=== PATIENT | male | born 1975 | race American Indian/Alaskan Native ===

== ENCOUNTER 2017-09-29 09:57 | Emergency (ER) | payer MEDICAID ==
[2017-09-29 10:17] VITALS: BP 155/72; PULSE 106; RESP 16
[2017-09-29 10:24] VITALS: TEMP 97.4; O2SAT 97
--- NOTE | 2017-09-29 11:32 | C.PDOC ---
History Of Present Illness 42 year old male, whose PMHx includes HIV, Asthma, Spinal Stenosis, presents to the ED for evaluation of chest pain and questionable syncopal episode onset prior to arrival. Patient admits to liquid marijuana use earlier today. Currently in ED, patient states his symptoms have improved. He denies shortness of breath, cough, extremity numbness/weakness. Time Seen by Provider: 09/29/17 10:50 Chief Complaint (Nursing): Chest Pain History Per: Patient History/Exam Limitations: no limitations Onset/Duration Of Symptoms: Hrs Current Symptoms Are (Timing): Better Quality: "Pain" Associated Symptoms: denies: Nausea Additional History Per: Patient Past Medical History Reviewed: Historical Data, Nursing Documentation, Vital Signs Vital Signs: Last Vital Signs Temp 97.4 F L 09/29/17 10:22 Pulse 106 H 09/29/17 10:10 Resp 16 09/29/17 10:10 BP 155/72 H 09/29/17 10:10 Pulse Ox 97 09/29/17 11:52 - Medical History PMH: Arthritis, Asthma, HIV Surgical History: No Surg Hx Family History: States: Unknown Family Hx - Social History Hx Alcohol Use: No Hx Substance Use: No (pt denies) - Immunization History Hx Tetanus Toxoid Vaccination: No Hx Influenza Vaccination: No Hx Pneumococcal Vaccination: No Review Of Systems Cardiovascular: Positive for: Chest Pain Physical Exam - Physical Exam Appears: Non-toxic, No Acute Distress Skin: Normal Color, Warm, Dry Head: Atraumatic, Normacephalic Eye(s): bilateral: Normal Inspection Oral Mucosa: Moist Neck: Supple Chest: Symmetrical, No Deformity, No Tenderness Cardiovascular: Rhythm Regular, No Murmur Respiratory: Normal Breath Sounds, No Rales, No Rhonchi, No Wheezing Gastrointestinal/Abdominal: Normal Exam, Bowel Sounds, Soft Extremity: Normal ROM, Capillary Refill (less than 2 seconds ) Neurological/Psych: Oriented x3, Normal Speech, Normal Cognition ED Course And Treatment ECG: Interpreted By Me, Viewed By Me ECG Rhythm: Sinus Rhythm Interpretation Of ECG: Normal Sinus Rhythm at 97bpm. Normal intervals. Normal axis. LVH. T wave inversions in lead III, aVF, and V6. Rate From EC O2 Sat by Pulse Oximetry: 97 (on RA) Pulse Ox Interpretation: Normal Medical Decision Making Medical Decision Making: Assessment: chest pain Progress: This patient is choosing to leave against medical advice. I have personally explained to the patient that choosing to do so may result in permanent bodily harm or . I have discussed at great length that without further evaluation and monitoring there may be unforeseen circumstances and/or deterioration causing permanent bodily harm or as a result of their choice. The patient is alert, oriented, and shows the mental capacity to make clear decisions regarding the patients health care at this time. The patient continues to wish to leave against medical advice. In light of the patients decision to leave AMA, follow-up has been arranged and the patient is aware of the importance of following up as instructed. The patient has been advised that he should return to the ED immediately if he changes his mind at any time, or if his condition begins to change or worsen in any way. Disposition - Disposition Disposition: AGAINST MEDICAL ADVICE Disposition Time: 11:32 Condition: STABLE Forms: [facility] (Nigerien) - Clinical Impression Clinical Impression: Chest pain - Scribe Statement The provider has reviewed the documentation as recorded by the Scribe (Sherie Husain) Provider Attestation: All medical record entries made by the Scribe were at my direction and personally dictated by me. I have reviewed the chart and agree that the record accurately reflects my personal performance of the history, physical exam, medical decision making, and the department course for this patient. I have also personally directed, reviewed, and agree with the discharge instructions and disposition.
--- NOTE | 2017-09-29 11:32 | C.PDOC ---
Time Seen by Provider: 09/29/17 10:50 Chief Complaint (Nursing): Chest Pain Past Medical History Vital Signs: Last Vital Signs Temp 97.4 F L 09/29/17 10:22 Pulse 106 H 09/29/17 10:10 Resp 16 09/29/17 10:10 BP 155/72 H 09/29/17 10:10 Pulse Ox 97 09/29/17 10:22 - Medical History PMH: Arthritis, Asthma, HIV - Social History Hx Alcohol Use: No Hx Substance Use: No (pt denies) - Immunization History Hx Tetanus Toxoid Vaccination: No Hx Influenza Vaccination: No Hx Pneumococcal Vaccination: No ED Course And Treatment O2 Sat by Pulse Oximetry: 97 Disposition - Disposition Disposition: AGAINST MEDICAL ADVICE Disposition Time: 11:32 Condition: STABLE - Clinical Impression Clinical Impression: Chest pain
--- NOTE | 2017-09-30 22:02 | CARD ---
APPROVED REPORT EKG Measurement Heart [id number] [id number] <Conclusion> Normal sinus rhythm Voltage criteria for left ventricular hypertrophy T wave abnormality, consider inferior ischemia Prolonged QT Abnormal ECG
== END 2017-09-29 11:35 | disposition left against medical advice (07) ==
LOC: C.ER 09:57
DX: R07.9 Chest pain, unspecified (principal)

== ENCOUNTER 2017-10-28 23:51 | Emergency (ER) | payer MEDICAID ==
[2017-10-29 00:05] VITALS: RESP 18
[2017-10-29 00:52] LABS: BASO % 0.2 % (0.0-2.0); EOS % 0.1 % (0.0-4.0); HEMOGLOBIN 12.6 g/dL (12.0-18.0); LYMPH # 0.4 K/uL (1.0-4.3); LYMPH % 4.4 % (20.0-40.0); MEAN CELL VOLUME 93.7 fL (80.0-94.0); MEAN CORPUSCULAR HEMOGLOBIN 32.6 pg (27.0-31.0); MEAN CORPUSCULAR HGB CONC 34.8 g/dL (33.0-37.0); MEAN PLATELET VOLUME 8.5 fL (7.2-11.7); MONO # 0.6 K/uL (0.0-0.8); MONO % 6.5 % (0.0-10.0); NEUT # 7.8 K/uL (1.8-7.0); NEUT % 88.8 % (50.0-75.0); PLATELET COUNT 175 K/uL (130-400); RBC 3.87 Mil/uL (4.40-5.90); RED CELL DISTRIBUTION WIDTH 15.5 % (11.5-14.5); WHITE BLOOD COUNT 8.8 K/uL (4.8-10.8)
[2017-10-29 00:53] LABS: URINE BILIRUBIN NEGATIVE (NEGATIVE); URINE CLARITY Clear (Clear); URINE COLOR Colorless (YELLOW); URINE GLUCOSE (UA) NORMAL (Normal); URINE LEUKOCYTE ESTERASE NEG Leu/uL (Negative); URINE PROTEIN NEGATIVE (NEGATIVE); URINE UROBILINOGEN NORMAL mg/dL (0.2-1.0)
[2017-10-29 00:57] LABS: URINE BLOOD NEGATIVE (NEGATIVE)
[2017-10-29 01:07] LABS: ALBUMIN 4.4 g/dL (3.5-5.0); ALT/SGPT 12 U/L (21-72); AST/SGOT 34 U/L (17-59); BARBITURATES, UR NEGATIVE (NEGATIVE); BENZODIAZEPINES, UR NEGATIVE (NEGATIVE); BLOOD UREA NITROGEN 10 mg/dL (9-20); GFR AFRICAN-AMERICAN > 60; GFR NON-AFRICAN AMERICAN > 60; OPIATES, UR NEGATIVE (NEGATIVE); PHENCYCLIDINE, UR NEGATIVE (NEGATIVE)
[2017-10-29 01:16] LABS: CK-MB 1.19 ng/mL (0.0-3.38)
[2017-10-29] MEDS ORDERED: Potassium Chloride 20 mEq ER Tab PO STA (01:29)
[2017-10-29] MEDS ORDERED: Potassium Chloride 20 mEq ER Tab PO ONE (01:43)
--- NOTE | 2017-10-29 01:52 | C.PDOC ---
Time Seen by Provider: 10/29/17 00:06 Chief Complaint (Nursing): Chest Pain History Per: Patient, Family () Onset/Duration Of Symptoms: Hrs (tonight) Current Symptoms Are (Timing): Still Present Severity: Moderate Quality: "Pain" Modifying Factors: Other Indicated Below Exacerbating Factors: Other (after smoking something laced with crack cocaine) Additional History Per: Prior Records Past Medical History Reviewed: Historical Data, Nursing Documentation, Vital Signs Vital Signs: Last Vital Signs Temp Pulse 109 H 10/29/17 00:02 Resp 18 10/29/17 00:02 BP 145/78 10/29/17 00:02 Pulse Ox 98 10/29/17 00:02 - Medical History PMH: Arthritis, Asthma, HIV, HTN, Hypercholesterolemia Family History: States: Unknown Family Hx - Social History Hx Tobacco Use: Yes Hx Alcohol Use: Yes Hx Substance Use: Yes - Immunization History Hx Tetanus Toxoid Vaccination: No Hx Influenza Vaccination: No Hx Pneumococcal Vaccination: No Review Of Systems Except As Marked, All Systems Reviewed And Found Negative. Constitutional: Negative for: Fever Cardiovascular: Positive for: Chest Pain Respiratory: Negative for: Hemoptysis Gastrointestinal: Negative for: Abdominal Pain Musculoskeletal: Negative for: Neck Pain, Leg Pain Neurological: Negative for: Weakness, Numbness Physical Exam - Physical Exam Appears: No Acute Distress Skin: Normal Color, Warm, Dry Head: Atraumatic, Normacephalic Eye(s): bilateral: Normal Inspection, PERRL Neck: Normal ROM, Supple Cardiovascular: Rhythm Regular Respiratory: Normal Breath Sounds, No Accessory Muscle Use Gastrointestinal/Abdominal: Soft, No Tenderness Back: No CVA Tenderness Extremity: Normal ROM, No Pedal Edema, No Calf Tenderness Neurological/Psych: Oriented x3, Normal Motor, Normal Sensation ED Course And Treatment - Laboratory Results Result Diagrams: 10/29/17 00:48 10/29/17 00:48 ECG: Interpreted By Me, Viewed By Me ECG Rhythm: Sinus Tachycardia, Nonspecific Changes ECG Interpretation: Abnormal Interpretation Of ECG: LVH with strain pattern Rate From EC O2 Sat by Pulse Oximetry: 98 Pulse Ox Interpretation: Normal - Radiology CXR: Interpreted by Me, Viewed By Me CXR Interpretation: Yes: No Acute Disease Progress Note: I want to keep pt for further evaluation and treatment, however pt is not willing to stay and wants to leave right now. He insists on leaving AMA even after I explained to him that he is in serious danger and may if he leaves right now. Against Medical Advice - AMA Patient Left Against Medical Advice: The patient declines admission to the hospital and wishes to leave the Emergency Department. This action is against my medical advice. This decision was made with informed refusal. The patient was told that admission to the hospital is necessary. Explanation of the reasons why were discussed. The risks of leaving were explained to the patient and include, but are not limited to, worsening of known or currently unknown conditions, permanent disability and from undiagnosed or untreated conditions. The patient has the capacity to make this informed decision and understands my explanation of the current medical problem and risks of leaving. The patient voluntarily accepts these risks and signed an AMA form documenting our conversation. The patient was given the opportunity to ask questions and reconsider. The patient was encouraged to return to the Emergency Department at any time for further care. Progress - Interventions Interventions:: Observation, Oxygen - Medications Administered Oral: Aspirin, Other (KCl) Intravenous: Other (Ativan) - Data Reviewed Data Reviewed: Lab, Diagnostic imaging, EKG, Old records - Patient Status Patient status: Partially improved - Continuity of Care Discussed patient case with:: Patient, Family-HIPPA compliant, ED Nurse Disposition Counseled Patient/Family Regarding: Studies Performed, Diagnosis, Need For Followup, Smoking Cessation - Disposition Referrals: [facility] [Outside] Disposition: AGAINST MEDICAL ADVICE Disposition Time: 01:55 Condition: GUARDED Additional Instructions: Follow up with your doctor or in the clinic as soon as possible. Return to the ER if you change your mind, develop worsening of symptoms or if you have any other concerns. Instructions: Chest Pain (DC), Leaving Against Medical Advice - Clinical Impression Clinical Impression: Left against medical advice, Chest pain, Cocaine abuse
[2017-10-29 02:06] VITALS: BP 154/81; PULSE 104; TEMP 98.7; O2SAT 96
[2017-10-29 02:20] LABS: BANDS 2 % (0-2); LYMPHOCYTE 6 % (20-40); MONOCYTE 8 % (0-10); NEUTROPHIL 84 % (50-75); PLATELET ESTIMATE NORMAL (NORMAL); TOTAL CELLS COUNTED 100
--- NOTE | 2017-10-29 11:57 | RAD ---
PROCEDURE: CHEST RADIOGRAPH, 1 VIEW HISTORY: Chest pain COMPARISON: None available. FINDINGS: LUNGS: Limited linear atelectasis or fibrosis in the inferior right lung zone with remaining lung lechuga clear bilaterally otherwise. PLEURA: No pneumothorax or pleural fluid seen. CARDIOVASCULAR: Normal. OSSEOUS STRUCTURES: No significant abnormalities. VISUALIZED UPPER ABDOMEN: Normal. OTHER FINDINGS: None. IMPRESSION: Linear atelectasis or fibrosis right lung base. No definite acute infiltrates bilaterally. No acute cardiac disease.
--- NOTE | 2017-11-01 14:16 | CARD ---
APPROVED REPORT EKG Measurement Heart [id number] <Conclusion> Sinus tachycardia Possible Left atrial enlargement Left ventricular hypertrophy with repolarization abnormality Abnormal ECG
== END 2017-10-29 02:11 | disposition left against medical advice (07) ==
LOC: C.ER 23:51
DX: R07.9 Chest pain, unspecified (principal); E87.6 Hypokalemia; F14.10 Cocaine abuse, uncomplicated
CPT/HCPCS: 71045; 80053; 80324; 80345; 80346; 80349; 80353; 80358; 80361; 81001; 83735; 83992; 84484; 85025; 93005; 96374; 99284; J2060

== ENCOUNTER 2017-11-30 03:33 | Emergency (ER) | payer MEDICAID ==
[2017-11-30 03:53] VITALS: RESP 12; O2SAT 98
--- NOTE | 2017-11-30 03:58 | C.PDOC ---
History Of Present Illness Patient with a Hx of HIV, HTN, and polysubstance abuse presents to the ER with a complaint of a dull, aching, nonradiating chest pain. He received aspirin and 3 sublingual nitro enroute. Denies fever, chills, nausea, or vomiting. Time Seen by Provider: 11/30/17 03:54 Chief Complaint (Nursing): Chest Pain History Per: Patient History/Exam Limitations: no limitations Onset/Duration Of Symptoms: Hrs Current Symptoms Are (Timing): Still Present Severity: Moderate Pain Scale Rating Of: 4 Quality: Dull, Aching Associated Symptoms: denies: Nausea, Dyspnea, Diaphoresis, Syncope Modifying Factors: None Exacerbating Factors: None Alleviating Factors: None Nitro Therapy Administered: 3, Per EMS Recent travel outside of the [place]: No Past Medical History Reviewed: Historical Data, Nursing Documentation, Vital Signs Vital Signs: Last Vital Signs Temp 98.9 F 11/30/17 03:43 Pulse 80 11/30/17 05:03 Resp 12 11/30/17 05:03 BP 115/57 L 11/30/17 05:03 Pulse Ox 98 11/30/17 05:04 - Medical History PMH: Arthritis, Asthma, HIV, HTN, Hypercholesterolemia Family History: States: No Known Family Hx - Social History Hx Tobacco Use: Yes Hx Alcohol Use: Yes Hx Substance Use: Yes - Immunization History Hx Tetanus Toxoid Vaccination: No Hx Influenza Vaccination: No Hx Pneumococcal Vaccination: No Review Of Systems Constitutional: Negative for: Fever, Chills Cardiovascular: Positive for: Chest Pain. Negative for: Palpitations Respiratory: Negative for: Cough, Shortness of Breath Gastrointestinal: Negative for: Nausea, Vomiting Physical Exam - Physical Exam Appears: Non-toxic Skin: Warm, Dry Head: Normacephalic Oral Mucosa: Moist Chest: No Tenderness, Other (Pierced nipples) Cardiovascular: Rhythm Regular Respiratory: No Rales, No Rhonchi, No Wheezing Gastrointestinal/Abdominal: Soft, No Tenderness Neurological/Psych: Oriented x3 ED Course And Treatment - Laboratory Results Result Diagrams: 11/30/17 04:03 11/30/17 04:03 ECG: Interpreted By Me, Viewed By Me ECG Rhythm: Sinus Rhythm (86), Nonspecific Changes O2 Sat by Pulse Oximetry: 98 (Room air) Pulse Ox Interpretation: Normal - Radiology CXR: Interpreted by Me, Viewed By Me CXR Interpretation: No: Infiltrates, Fracture, Pnemothorax Progress Note: EKG, blood work, CXR, and urinalysis ordered. Reevaluation Time: 05:41 Reassessment Condition: Improved Medical Decision Making Medical Decision Making: Upon provider reevaluation patient is feeling better, is medically stable, and requires no further treatment in the ED at this time. Patient will be discharged home . Counseling was provided and all questions were answered regarding diagnosis and need for follow up with dr patricia. There is agreement to discharge plan. Return if symptoms persist or worsen. Disposition Counseled Patient/Family Regarding: Studies Performed, Diagnosis, Need For Followup - Disposition Referrals: Micky Patricia MD [Medical Doctor] - Disposition: HOME/ ROUTINE Disposition Time: 03:58 Condition: FAIR Additional Instructions: Please refrain from cocaine use and do return if symptoms recur Instructions: Cocaine Use Disorder, Chest Pain (DC) Forms: [email or web address] (Ukrainian) - Clinical Impression Clinical Impression: Chest pain, Cocaine abuse - Scribe Statement The provider has reviewed the documentation as recorded by the Scribrussell Merida All medical record entries made by the Scribe were at my direction and personally dictated by me. I have reviewed the chart and agree that the record accurately reflects my personal performance of the history, physical exam, medical decision making, and the department course for this patient. I have also personally directed, reviewed, and agree with the discharge instructions and disposition.
[2017-11-30 04:10] LABS: BASO % 0.3 % (0.0-2.0); EOS % 0.4 % (0.0-4.0); HEMOGLOBIN 13.3 g/dL (12.0-18.0); LYMPH # 1.2 K/uL (1.0-4.3); LYMPH % 10.5 % (20.0-40.0); MEAN CELL VOLUME 94.2 fL (80.0-94.0); MEAN CORPUSCULAR HEMOGLOBIN 31.9 pg (27.0-31.0); MEAN CORPUSCULAR HGB CONC 33.9 g/dL (33.0-37.0); MONO # 0.6 K/uL (0.0-0.8); MONO % 5.2 % (0.0-10.0); NEUT # 9.2 K/uL (1.8-7.0); NEUT % 83.6 % (50.0-75.0); NRBC % 0.1 % (0.0-2.0); RBC 4.15 Mil/uL (4.40-5.90); RED CELL DISTRIBUTION WIDTH 14.5 % (11.5-14.5)
[2017-11-30 04:12] LABS: URINE BILIRUBIN NEGATIVE (NEGATIVE); URINE CLARITY Clear (Clear); URINE COLOR Straw (YELLOW); URINE GLUCOSE (UA) NORMAL (Normal); URINE LEUKOCYTE ESTERASE NEG Leu/uL (Negative); URINE PROTEIN NEGATIVE (NEGATIVE); URINE UROBILINOGEN NORMAL mg/dL (0.2-1.0)
[2017-11-30 04:14] LABS: INR 1.2; PROTHROMBIN TIME 12.8 SECONDS (9.7-12.2)
[2017-11-30 04:17] LABS: URINE BLOOD TRACE (NEGATIVE)
[2017-11-30 04:21] LABS: ALB/GLOB RATIO 1.3 (1.0-2.1); ALBUMIN 4.7 g/dL (3.5-5.0); ALT/SGPT 24 U/L (21-72); AST/SGOT 36 U/L (17-59); BLOOD UREA NITROGEN 13 mg/dL (9-20); CALCIUM 9.4 mg/dl (8.6-10.4); GFR AFRICAN-AMERICAN > 60; GFR NON-AFRICAN AMERICAN > 60
[2017-11-30 04:32] LABS: B-TYPE NATRIURETIC PEPTIDE 31.4 pg/mL (0-450)
[2017-11-30 04:36] LABS: BARBITURATES, UR NEGATIVE (NEGATIVE); BENZODIAZEPINES, UR NEGATIVE (NEGATIVE); OPIATES, UR NEGATIVE (NEGATIVE); PHENCYCLIDINE, UR NEGATIVE (NEGATIVE)
[2017-11-30 05:03] VITALS: BP 115/57; PULSE 80
[2017-11-30 05:53] VITALS: TEMP 98.2
--- NOTE | 2017-11-30 12:09 | RAD ---
Chest x-ray single frontal view History: Chest pain Comparison: 10/29/2017 Findings: Linear atelectatic changes at both lung bases. No focal infiltrate or effusion. Upper lobe granulomatous changes. Heart size within normal limits. Degenerative changes in the spine. Impression: Linear atelectatic changes at both lung bases. No focal infiltrate or effusion. Upper lobe granulomatous changes. Heart size within normal limits.
== END 2017-11-30 05:58 | disposition home or self-care (01) ==
LOC: C.ER 03:33
DX: R07.9 Chest pain, unspecified (principal); F14.10 Cocaine abuse, uncomplicated; I10 Essential (primary) hypertension; E78.00 Pure hypercholesterolemia, unspecified; F17.210 Nicotine dependence, cigarettes, uncomplicated

== ENCOUNTER 2018-09-18 11:52 | Emergency (ER) | payer MEDICAID ==
--- NOTE | 2018-09-18 12:29 | C.PDOC ---
History Of Present Illness REQUESTING "SOMETHING FOR CONSTIPATION", NO BM X 4 DAYS. SP DC FROM [facility] [place] FOR VOMITING, NARCOTIC WITHDRAWAL. PS S/P CT ABD "IT WAS NEGATIVE". REQUESTED "LIQUID TO DRINK SO I CAN GO" BUT NO RX GIVEN. +FLATUS. DENIES PSH ABD. NO NV. +BLOATING NO FEVER. EXAM NONTOXIC ABD SOFT NT ND NO R/G REMAINDER NEG MDM ENEMA, MG CITRATE Time Seen by Provider: 09/18/18 12:10 Chief Complaint (Nursing): Abdominal Pain History Per: Patient History/Exam Limitations: no limitations Onset/Duration Of Symptoms: Days Current Symptoms Are (Timing): Still Present Severity: Moderate Past Medical History Reviewed: Historical Data, Nursing Documentation, Vital Signs Vital Signs: Last Vital Signs Temp 98.9 F 09/18/18 11:59 Pulse 68 09/18/18 11:59 Resp 18 09/18/18 11:59 BP 138/81 09/18/18 11:59 Pulse Ox 99 09/18/18 11:59 - Medical History PMH: Arthritis, Asthma, HIV, HTN, Hypercholesterolemia Surgical History: No Surg Hx Family History: States: No Known Family Hx - Social History Hx Tobacco Use: Yes Hx Alcohol Use: Yes Hx Substance Use: Yes - Immunization History Hx Tetanus Toxoid Vaccination: No Hx Influenza Vaccination: No Hx Pneumococcal Vaccination: No Review Of Systems Except As Marked, All Systems Reviewed And Found Negative. Constitutional: Negative for: Fever, Chills Cardiovascular: Negative for: Chest Pain Respiratory: Negative for: Shortness of Breath Gastrointestinal: Positive for: Abdominal Pain, Constipation. Negative for: Nausea, Vomiting Physical Exam - Physical Exam Appears: Non-toxic Skin: Normal Color, Warm, Dry Head: Atraumatic, Normacephalic Eye(s): bilateral: Normal Inspection Nose: Normal Oral Mucosa: Moist Neck: Supple Chest: Symmetrical Cardiovascular: Rhythm Regular Respiratory: Normal Breath Sounds, No Rales, No Rhonchi, No Wheezing Gastrointestinal/Abdominal: Normal Exam, Soft, No Tenderness, No Guarding, No Rebound Neurological/Psych: Oriented x3, Normal Speech ED Course And Treatment O2 Sat by Pulse Oximetry: 99 (RA) Pulse Ox Interpretation: Normal Medical Decision Making Medical Decision Making: ENEMA, MG CITRATE Disposition Counseled Patient/Family Regarding: Diagnosis, Need For Followup, Rx Given - Disposition Referrals: [facility] [Outside] [facility] [Outside] Disposition: HOME/ ROUTINE Disposition Time: 13:23 Condition: IMPROVED Prescriptions: Docusate Sodium [Colace] 100 mg PO BID PRN #30 capsule PRN Reason: Constipation Magnesium Citrate [[facility] Magnesium Citrate] 300 ml PO ONCE #1 bottle Instructions: Constipation, Adult (DC) Forms: [facility] (Citizen [place]) - Clinical Impression Clinical Impression: Abdominal bloating, Constipation - Scribe Statement The provider has reviewed the documentation as recorded by the Killian Caban Provider Attestation: All medical record entries made by the Killian were at my direction and personally dictated by me. I have reviewed the chart and agree that the record accurately reflects my personal performance of the history, physical exam, medical decision making, and the department course for this patient. I have also personally directed, reviewed, and agree with the discharge instructions and disposition.
[2018-09-18 13:55] VITALS: BP 146/85; PULSE 88; RESP 16; TEMP 98.7
[2018-09-18 14:08] VITALS: O2SAT 99
== END 2018-09-18 13:35 | disposition home or self-care (01) ==
LOC: C.ER 11:52
DX: K59.00 Constipation, unspecified (principal); R14.0 Abdominal distension (gaseous); E78.00 Pure hypercholesterolemia, unspecified; I10 Essential (primary) hypertension; Z72.0 Tobacco use